=== PATIENT | female | born 1950 | race Caucasian/White ===

== ENCOUNTER 2023-03-15 06:55 | Day surgery (SDC) | payer MEDICARE ==
[2023-03-15] MEDS ORDERED: Midazolam 1 MG/ML 2 ML SDV IV ONE (06:56)
[2023-03-15] MEDS ORDERED: Propofol 200 MG/20 ML SDV IV ONE (06:56)
[2023-03-15] MEDS ORDERED: Sodium Chloride 0.9% 10 ML Syringe FLUSH PRN (07:00)
[2023-03-15] MEDS: Lactated Ringers 1,000 ML IV SCH (07:15)
[2023-03-15] MEDS ORDERED: Hydrochlorothiazide 25 MG Tab PO ONE (10:39)
[2023-03-15] MEDS: Hydrochlorothiazide 12.5 MG Cap PO ONE (10:45)
[2023-03-15 13:05] VITALS: BP 198/94; PULSE 75
== END 2023-03-15 11:05 | disposition home or self-care (01) ==
LOC: KA.SDS 06:55
PROVIDERS: ATTEND Family Medicine
DX: K57.31 Diverticulosis of large intestine without perforation or abscess with bleeding (principal); K64.8 Other hemorrhoids; G35 Multiple sclerosis; F41.9 Anxiety disorder, unspecified; F32.A Depression, unspecified; Z87.891 Personal history of nicotine dependence; Z79.899 Other long term (current) drug therapy; Z88.2 Allergy status to sulfonamides; Z88.8 Allergy status to other drugs, medicaments and biological substances
CPT/HCPCS: A9270-GY; J2250; J2704; J7120